=== PATIENT | female | born 1975 | race Two or more races ===

== ENCOUNTER 2019-05-18 10:54 | Inpatient (IN) | payer OTHER ==
[2019-05-18] MEDS ORDERED: MICARDIS40 MG (12:21)
[2019-05-18] MEDS ORDERED: NEXIUM2.5 MG (12:22)
[2019-05-18] MEDS ORDERED: SYNTHROID200 MCG (12:22)
[2019-05-18] MEDS ORDERED: NEXIUM 24HR20 M1 (12:22)
[2019-05-24] MEDS ORDERED: GABAPENTIN800 MG PO (17:15)
[2019-05-24] MEDS ORDERED: SIMETHICONE125 M1 PO (17:15)
[2019-05-24] MEDS ORDERED: PREMARIN0.45 MG PO (17:15)
[2019-05-24] MEDS ORDERED: IBUPROFEN800 MG PO (17:15)
== END 2019-05-24 17:58 | disposition home or self-care (01) | DRG 743 ==
LOC: O/R 11:30 → OB/GYN 05-22 06:10 → O/R 05-22 06:10 → OB/GYN 05-22 11:20 → O/R 05-22 11:30 → OB/GYN 05-24 17:58
PROVIDERS: ADMIT Obstetrics & Gynecology
PROC: 0UT20ZZ Resection of Bilateral Ovaries, Open Approach (ICD-10-PCS; 2019-05-22)
PROC: 0DNW0ZZ Release Peritoneum, Open Approach (ICD-10-PCS; 2019-05-22)
PROC: 0UT70ZZ Resection of Bilateral Fallopian Tubes, Open Approach (ICD-10-PCS; principal; 2019-05-22 08:30)
DX: N83.02 Follicular cyst of left ovary (principal); N83.291 Other ovarian cyst, right side; N73.6 Female pelvic peritoneal adhesions (postinfective)